=== PATIENT | female | born 1940 | race Caucasian/White ===

== ENCOUNTER 2017-08-22 09:42 | Emergency (ER) | payer OTHER ==
[~2017-08-22] VITALS: Ht 162.6 cm; Wt 80.4 kg
[~2017-08-22 09:42] MED LIST: BACTRIM,SEPT1 TABLET PO; KEFLEX500 MG PO; NORCO 5/3251 TABLET PO; PROBIOTIC1 EAC1 PO
[2017-08-22 11:51] VITALS: BP 147/86
== END 2017-08-22 11:52 | disposition home or self-care (01) ==
LOC: EME 09:42
PROC: 0HB4XZZ Excision of Neck Skin, External Approach (ICD-10-PCS; principal; 2017-08-22)
DX: L72.3 Sebaceous cyst (principal); L08.9 Local infection of the skin and subcutaneous tissue, unspecified; I10 Essential (primary) hypertension
CPT/HCPCS: 99281; 99283